=== PATIENT | male | born 1995 | race Caucasian/White ===

== ENCOUNTER 2018-05-07 23:56 | Emergency (ER) | payer OTHER ==
[~2018-05-07] VITALS: Ht 188 cm; Wt 103.0 kg
[2018-05-08] MEDS ORDERED: DIVA500T2 PO (00:25)
[2018-05-08] MEDS ORDERED: HYDR25TA6 PO (00:25)
[2018-05-08] MEDS ORDERED: LISI-167 PO (00:25)
[2018-05-08] MEDS ORDERED: REMERON PO (00:25)
[2018-05-08] MEDS ORDERED: DIPH25CA61 PO (00:25)
[2018-05-08] MEDS ORDERED: LORazepam 1MG TABLET ONE (00:28)
[2018-05-08] MEDS ORDERED: OLANZAPINE 10 MG TABLET ONE (00:28)
[2018-05-08] MEDS ORDERED: LORazepam 1MG TABLET PO ONE (00:30)
[2018-05-08] MEDS ORDERED: PLEASE ENTER ALLERGIES MC SCH (00:30)
--- NOTE | 2018-05-08 00:43 | NUR ---
PT MEDICATED PER EMAR. PT RESTING CALMLY IN GURNEY. PT MOTHER AT BEDSIDE. PT MOTHER IS SAFE RIDE HOME FOR PT. PT MOTHER AWARE, LPT NOW UNABLE TO DRIVE. WILL CONTINUE TO MONITOR. CALL LIGHT WITHIN REACH.
[2018-05-08 00:53] VITALS: BP 128/66
--- NOTE | 2018-05-08 00:53 | NUR ---
BREAK RN: PT AND PARENT REPORT READY FOR DC. PT CALM, COOPERATIVE. DC'D HOME WITH MOTHER
[2018-05-08] MEDS ORDERED: OLANZAPINE 10 MG TABLET PO SCH (09:00)
== END 2018-05-08 00:56 | disposition home or self-care (01) ==
LOC: ED 05-08 00:50
DX: F41.1 Generalized anxiety disorder (principal); I10 Essential (primary) hypertension; F31.9 Bipolar disorder, unspecified; F43.10 Post-traumatic stress disorder, unspecified
CPT/HCPCS: 99284